=== PATIENT | male | born 1985 | race Caucasian/White ===

== ENCOUNTER 2018-11-08 07:27 | Day surgery (SDC) | payer OTHER ==
[2018-11-08] VITALS (13 sets, daily range): BP systolic 123–150; BP diastolic 62–98; PULSE 87–108; RESP 14–22; Ht 175.3 cm; Wt 88.7 kg
[~2018-11-08] VITALS: Ht 175.3 cm; Wt 88.7 kg
[~2018-11-08 07:27] MED LIST: SOD CHLORIDE 0.9% 1,000 ML IV SCH
[2018-11-08] MEDS ORDERED: SPIR100T4 PO (07:59)
[2018-11-08] MEDS ORDERED: EST2 PO (08:00)
[2018-11-08] MEDS ORDERED: ERGO2000 PO (08:01)
[2018-11-08] MEDS ORDERED: NEOSTIGMINE 3 MG/3 ML SYRINGE ONE ×2 (09:00→11:59)
[2018-11-08] MEDS ORDERED: GLYCOPYRROLATE 0.4 MG INJ ONE ×2 (09:00→11:59)
[2018-11-08] MEDS ORDERED: MEPERIDINE 100 MG INJ ONE (09:00)
[2018-11-08] MEDS ORDERED: LIDOCAINE 2% (SDV) 5 ML INJ ONE (09:00)
[2018-11-08] MEDS ORDERED: ROCURONIUM 50 MG INJ ONE (09:00)
[2018-11-08] MEDS ORDERED: PROPOFOL 20 ML ONE (09:00)
[2018-11-08] MEDS ORDERED: SUCCINYLCHOLINE CHLORIDE 100 MG/5 ML SYG IV ONE (09:00)
--- NOTE | 2018-11-08 09:00 | PREAC ---
Date/Time of Note Date/Time of Note DATE: 11/08/18 TIME: 08:58 Anesthesia Eval and Record Evaluation Time Pre-Procedure Interview DATE: 11/08/18 TIME: 08:58 Age 33 Sex male NPO: 8 hrs Preoperative diagnosis Gender identity disorder Planned procedure Bilateral breast reconstruction Past Medical History Past Medical History: Includes Recreational drugs: Marijuana Surgery & Anesthesia Issues No known issue Meds Anticoagulation: No Beta Almaz within 24 hr: No Reason Beta Almaz not given: Pt. not on B-Almaz Reported Medications Ergocalciferol (Vitamin D2) (VITAMIN D2) 2,000 Unit Tablet, 2000 UNIT PO DAILY, TAB 11/08/18 Estradiol* (Estrace*) 2 Mg Tab, 4 MG PO BID, TAB 11/08/18 Spironolactone* (Spironolactone*) 100 Mg Tablet, 100 MG PO BID, TAB 11/08/18 Current Medications Sodium Chloride 1,000 ml @ 20 mls/hr Q24H IV Last administered on 11/08/18at 08:22; Admin Dose 20 MLS/HR; Start 11/08/18 at 06:00; Stop 11/10/18 at 07:59 Meds reviewed: Yes Allergies Coded Allergies: No Known Allergy (Unverified , 11/08/18) Allergies Reviewed: Yes Labs/Studies Labs Reviewed: Reviewed by anesthesiologist test: N/A Pre-procedure Exam Last vitals Vital Signs Date Temp Pulse Resp B/P (MAP) Pulse Ox O2 O2 Flow FiO2 Time Delivery Rate 11/08/18 97.6 92 16 125/62 97 Room Air 08:14 (83) Airway: Adequate mouth opening Mallampati: Mallampati I Teeth: Normal Lung: Normal Heart: Normal ASA Physical Status ASA physical status: 2 Emergency: None Planned Anesthetic General/MAC: ETT Planned Pain Management Parenteral pain med Pre-operative Attestations Prior to commencing anesthesia and surgery, the patient was re-evaluated, there was verification of: *The patient's identity *The results of appropriate recent lab work and preoperative vital signs *The above evaluation not changing prior to induction *Anesthetic plan, risk benefits, alternative and complications discussed with patient/family; questions answered; patient/family understands, accepts and wishes to proceed. KIRAN URIBE MD Nov 08, 2018 08:59
[2018-11-08] MEDS ORDERED: BUPIVACAINE 0.25%/EPI (SDV) 30 ML INJ ONE (09:13)
[2018-11-08] MEDS ORDERED: BUPIVACAINE LIPOSOME/PF 266 MG/20 ML VIAL INFIL ONE (09:30)
[2018-11-08] MEDS ORDERED: EXPAREL NOTE (BUPIVICAINE LIPOSOMAL) XX SCH (09:30)
--- NOTE | 2018-11-08 09:55 | HPN ---
Date/Time of Note Date/Time of Note DATE: 11/08/18 TIME: 09:55 Interval H&P Admission Note Pt. seen H&P reviewed: No system changes ESAU CHAMBERS MD Nov 08, 2018 09:55
[2018-11-08] MEDS ORDERED: GENTAMICIN 80 MG INJ ONE (09:58)
[2018-11-08] MEDS ORDERED: POLYMYXIN/BACITRACIN 1L IRRIG ONE (09:58)
[2018-11-08] MEDS ORDERED: SODIUM CL BACTERIOSTATIC 30 ML INJ ONE (09:59)
[2018-11-08] MEDS ORDERED: ACETAMINOPHEN 325 MG TAB PO PRN (10:00)
[2018-11-08] MEDS ORDERED: morphine 2 MG INJ IV PRN (10:00)
[2018-11-08] MEDS ORDERED: HYDROCODONE/APAP (5/325) TAB PO PRN (10:00)
[2018-11-08] MEDS ORDERED: ONDANSETRON 4 MG INJ IV PRN ×2 (10:00→11:00)
--- NOTE | 2018-11-08 10:07 | OPR ---
Date/Time of Note Date/Time of Note DATE: 11/08/18 TIME: 10:00 Operative Report Free Text/Dictation Plastic Surgery Operative Report Preoperative diagnosis: gender dysphoria Postoperative diagnosis: same Procedure: bilateral transgender breast reconstruction with expanders Surgeon: jamie Aggarwal.: MONICA saunders Anesthesia: gen EBL: min IV fluids: per flow sheet Findings: n/a Complications: none Dispo: home Indications for procedure: 33-year-old transgender male to female patient presents for bilateral breast reconstruction with implants. The risks, benefits, alternatives of performing this procedure were discussed with the patient including risks of bleeding, infection, wound healing problems, asymmetry, as well as implant related complications such as deflation, capsular contracture, rupture, and need for future revisions as breast implants are not lifetime devices. The patient states that she understands these risks and would like to proceed with the procedure. All questions were answered, no guarantees were given with regards to the outcome of this procedure. Description of procedure: The patient was brought to the operating room at [facility] where general anesthesia was induced and the patient was prepped and draped in usual sterile fashion with ChloraPrep. A total of 5 cc of 0.25% Marcaine with 1: 200,000 epinephrine was injected into the planned incision site in each breast. The incision sites were marked along the new planned inframammary fold position based on the anticipated size of the breasts. Next, an incision was made in the right plan inframammary fold with the 15 blade, and dissection was carried out down to the pectoralis muscle with electrocautery. The pectoralis muscle was released on its inferior surface, and the subpectoral space was entered. A pocket was then created below the pectoralis muscle. Dissection proceeded medially, then superiorly, laterally, and under direct visualization, the pectoralis muscle was released from lateral to medial along its inferior fibers. The pocket was irrigated with antibiotic irrigation, hemostasis was achieved with electrocautery, and then attention was turned to the left breast where a similar procedure was carried out. Incision was made with 15 blade, and dissection was carried out down to the pectoralis muscle with electrocautery. The pectoralis muscle was released along its inferior fibers, and then the subpectoral space was entered. The pocket was cr eated underneath the pectoralis muscle in a similar fashion, and an electro cautery was used to divide the pectoralis muscle under direct visualization from lateral to medial. Hemostasis was achieved with electrocautery, and the pocket was irrigated antibiotic irrigation, and the pockets were inspected and found to be symmetric. The base width was then measured and was found to be approximately 14cm. Therefore, a sientra low height 14cm 460-550cc tissue shuttle fixer was opened, rinsed in antibiotic irrigation, the air was evacuated, and then gloves were changed and this was inserted into the right breast and was sutured in place wi th 2-0 Vicryl suture. The same size and style shuttle fixer was opened, rinsed in antibiotic irrigation, and was inserted into the contralateral breast. Next, a total of 300 cc of sterile saline was injected into each shuttle fixer. 40 cc of a dilute exparel solution was injected around the breasts, and a # 15 Hieu drain was inserted through a stab incision in each breast and were secured in place with 2-0 nylon suture. The patient was sat up on the operating room table and the breasts were inspected and were symmetric. She was sat back down. The breast was then closed with 2-0 vicryl suture on the deep tissue followed by 3-0 Vicryl suture and 4-0 Monocryl suture and was dressed with Dermabond. the patient tolerated this procedure well, there were no complications, follow up information and wound care instructions were given. MONICA Saunders assisted with this procedure. Description of procedure: Preoperative Diagnosis gender dysphoria Postoperative Diagnosis same Operation/Procedure Performed first stage transgender breast reconstruction Surgeon see signature line [employer] MONICA Saunders Anesthesia Type: general Estimated Blood Loss: minimal Transfusion none Specimen none Grafts/Implants bilateral breast tissue expanders Tubes/Drains hieu drains bilaterally 15f Complications none Pt Condition Post Procedure: stable Procedure Description see dictation ESAU CHAMBERS MD Nov 08, 2018 10:07
[2018-11-08] MEDS ORDERED: HYDROmorphONE 1 MG/5 ML IV SYRINGE IV PRN ×3 (11:00)
[2018-11-08] MEDS ORDERED: METOCLOPRAMIDE 10 MG INJ IV PRN (11:00)
[2018-11-08] MEDS ORDERED: OXYCODONE/ACETAMINOPHEN (5/325) TAB PO PRN ×2 (11:00)
[2018-11-08] MEDS ORDERED: MIDAZOLAM 1 MG/ML 2 ML INJ IV PRN (11:00)
[2018-11-08] MEDS ORDERED: DIPHENHYDRAMINE 50 MG INJ IV PRN (11:00)
[2018-11-08] MEDS ORDERED: FENTAnyl 50 MCG/ML VIAL IV PRN ×3 (11:00)
[2018-11-08] MEDS ORDERED: MEPERIDINE 25 MG INJ IV PRN (11:00)
[2018-11-08] MEDS ORDERED: ONDANSETRON 4 MG INJ ONE (11:59)
--- NOTE | 2018-11-08 13:08 | PAC ---
Date/Time of Note Date/Time of Note DATE: 11/08/18 TIME: 13:08 Post-Anesthesia Notes Post-Anesthesia Note Last documented vital signs Vital Signs Date Temp Pulse Resp B/P (MAP) Pulse Ox O2 O2 Flow FiO2 Time Delivery Rate 11/08/18 90 14 141/92 94 Room Air 12:53 (108) 11/08/18 99.2 12:39 Activity: WNL Respiratory function: WNL Cardiovascular function: WNL Mental status: Baseline Pain reasonably controlled: Yes Hydration appropriate: Yes Nausea/Vomiting absent: Yes Comments BT: 98.8 KIRAN URIBE MD Nov 08, 2018 13:08
== END 2018-11-08 14:00 | disposition home or self-care (01) ==
LOC: SDS 07:27
PROVIDERS: ATTEND Surgery Plastic and Reconstructive Surgery
DX: F64.9 Gender identity disorder, unspecified (principal)
CPT/HCPCS: 19357; C9290; J1580; J2405; J2710; J3010; Z7512; Z7610; J2175